=== PATIENT | female | born 1975 | race Caucasian/White ===

== ENCOUNTER 2020-05-15 09:27 | Day surgery (SDC) | payer BC, MEDICARE ==
[~2020-05-15] VITALS: Ht 172.7 cm; Wt 70.0 kg
[~2020-05-15 09:27] MED LIST: ACTIVE; CELE100C PO; DULO60CA7 PO; LEVO50TA
[2020-05-15 10:36] VITALS: BP 108/68
[2020-05-15] MEDS ORDERED: AMLO-150 PO ×2 (10:44→12:09)
[2020-05-15 10:47] LABS: BASOPHILS # (AUTO) 0.01 x10^3/uL (0-0.1); BASOPHILS % (AUTO) 0 % (0-1); EOSINOPHILS # (AUTO) 0.14 x10^3/uL (0-0.4); EOSINOPHILS % (AUTO) 3 % (1-7); LYMPHOCYTES # (AUTO) 1.17 x10^3/uL (1-3.4); LYMPHOCYTES % (AUTO) 26 % (22-44); MD NO; MEAN CORPUSCULAR HEMOGLOBIN 28.7 pg (27.0-34.8); MEAN CORPUSCULAR HGB CONC 33.8 g/dL (32.4-35.8); MEAN CORPUSCULAR VOLUME 84.7 fL (80-100); MONOCYTES # (AUTO) 0.21 x10^3/uL (0.2-0.8); MONOCYTES % (AUTO) 5 % (2-9); NEUTROPHILS # (AUTO) 2.97 x10^3/uL (1.8-6.8); NEUTROPHILS % (AUTO) 66 % (42-75); PLATELET COUNT 269 x10^3/uL (130-400); RED CELL DISTRIBUTION WIDTH 16.2 % (9.6-15.2)
[2020-05-15 10:50] LABS: ANION GAP 3 mmol/L (5-15); CALCIUM 9.8 mg/dL (8.5-10.1); CHLORIDE 108 mmol/L (98-107); CREATININE 0.88 mg/dL (0.55-1.02)
[2020-05-15] MEDS ORDERED: OXYC10TA6 PO (11:00)
[2020-05-15] MEDS ORDERED: LIOT5TAB11 PO (11:00)
[2020-05-15] MEDS ORDERED: LEVO1CAP PO (11:00)
[2020-05-15] MEDS ORDERED: HYDR4TAB48 PO (11:00)
[2020-05-15] MEDS ORDERED: KETAMINE SL (11:00)
[2020-05-15] MEDS ORDERED: GABA300C PO (11:00)
[2020-05-15] MEDS ORDERED: ASPI-496 PO (11:00)
[2020-05-15] MEDS ORDERED: [UNRECOGNIZED DRUG - OTHER] (11:00)
[2020-05-15] MEDS ORDERED: FERR324T5 PO (11:00)
[2020-05-15] MEDS ORDERED: ACET325C6 PO (11:00)
[2020-05-15] MEDS ORDERED: VITAMIN D PO (11:00)
[2020-05-15] MEDS ORDERED: DIPHENHYDRAMINE 50 MG/ML, 1ML ONE (11:19)
[2020-05-15] MEDS ORDERED: DIPHENHYDRAMINE 50 MG/ML, 1ML IVPush ONE (11:30)
[2020-05-15] MEDS ORDERED: LIDOCAINE 1%, 20ML ONE (11:36)
[2020-05-15] MEDS ORDERED: FENTANYL PF 100 MCG/2ML ONE (11:41)
[2020-05-15] MEDS ORDERED: MIDAZOLAM 1 MG/ML, 5ML ONE (11:41)
== END 2020-05-15 15:31 | disposition home or self-care (01) ==
LOC: CACL 09:27
PROVIDERS: ATTEND Internal Medicine Cardiovascular Disease
DX: R94.31 Abnormal electrocardiogram [ECG] [EKG] (principal); I27.20 Pulmonary hypertension, unspecified; Z79.899 Other long term (current) drug therapy
CPT/HCPCS: 36415; 80048; 85025; 93451; 99156; C1894; J1200; J2250; J3010